=== PATIENT | female | born 1945 | race African-American/Black ===

== ENCOUNTER 2021-09-05 11:34 | Emergency (ER) | payer OTHER ==
[2021-09-05 11:50] VITALS: BP 179/82; PULSE 71; TEMP 98.2; BMI 34.0
[2021-09-05] MEDS ORDERED: IBUPROFEN 600 MG TABLET (FP) PO ONE (13:01)
== END 2021-09-05 13:04 | disposition home or self-care (01) ==
LOC: JERFT 11:34
DX: S82.832A Other fracture of upper and lower end of left fibula, initial encounter for closed fracture (principal); W10.8XXA Fall (on) (from) other stairs and steps, initial encounter
CPT/HCPCS: 73610-TC-LT-FY; 73630-TC-LT; 99283-25

== ENCOUNTER 2022-01-01 17:14 | Emergency (ER) | payer OTHER ==
[2022-01-01 17:43] VITALS: TEMP 98; BMI 34.3
[2022-01-01] MEDS ORDERED: ACETAMINOPHEN 500 MG TABLET (FP) PO ONE (18:21)
[2022-01-01] MEDS ORDERED: ACETAMINOPHEN 325 MG TABLET (FP) ONE (18:39)
[2022-01-01 21:43] VITALS: BP 168/78; PULSE 89
== END 2022-01-01 21:54 | disposition home or self-care (01) ==
LOC: JER 17:14
DX: S82.402A Unspecified fracture of shaft of left fibula, initial encounter for closed fracture (principal); M79.672 Pain in left foot; Y99.9 Unspecified external cause status
CPT/HCPCS: 73610-TC-LT-FY; 73630-TC-LT; 93971-TC; 99284-25

== ENCOUNTER 2022-02-19 05:28 | Inpatient (IN) | payer MEDICARE, OTHER ==
[2022-02-19 05:48] VITALS: BMI 34.0
[2022-02-19] MEDS ORDERED: amLODIPine BESYLATE 5 MG TABLET (FP) PO ONE (06:01)
[2022-02-19] MEDS ORDERED: LIDOCAINE 5% TOPICAL PATCH TP ONE (06:11)
[2022-02-19] MEDS ORDERED: HYDROCHLOROTHIAZIDE 12.5 MG CAPSULE (FP) PO ONE (06:11)
[2022-02-19] MEDS ORDERED: ACETAMINOPHEN 500 MG TABLET (FP) PO ONE (06:11)
[2022-02-19] MEDS ORDERED: amLODIPine BESYLATE 5 MG TABLET (FP) ONE (06:44)
[2022-02-19] MEDS ORDERED: HYDROCHLOROTHIAZIDE 25 MG TABLET (FP) ONE (06:45)
[2022-02-19] MEDS ORDERED: ACETAMINOPHEN 325 MG TABLET (FP) ONE (06:45)
[2022-02-19] MEDS ORDERED: LIDOCAINE 5% TOPICAL PATCH ONE (06:45)
[2022-02-19] MEDS ORDERED: KETOROLAC TROMETHAMINE 15 MG/ML VIAL IM ONE (07:11)
[2022-02-19] MEDS ORDERED: KETOROLAC TROMETHAMINE 15 MG/ML VIAL ONE (08:13)
[2022-02-19] MEDS ORDERED: morphine CARPU-JECT 4 MG/1 ML DISP.SYRIN IVPUSH ONE (09:33)
[2022-02-19] MEDS ORDERED: morphine SULFATE 4 MG/ML VIAL ONE (11:42)
[2022-02-19] MEDS ORDERED: morphine CARPU-JECT 2 MG/1 ML DISP.SYRIN IVPUSH PRN (12:17)
[2022-02-19 14:26] LABS: HEMATOCRIT 35.5 % (32.4-45.2); HEMOGLOBIN 11.5 GM/dL (10.7-15.3); MCH 24.7 pg (25.7-33.7); MCHC 32.3 g/dl (32.0-36.0); MEAN CELL VOLUME 76.6 fl (80-96); MEAN PLT VOLUME 7.2 fl (7.5-11.1); PLATELET COUNT 213 10^3/uL (134-434); RBC 4.64 M/mm3 (3.60-5.2); RDW 15.6 % (11.6-15.6); WHITE BLOOD COUNT 4.1 K/mm3 (4.0-10.0)
[2022-02-19 14:47] LABS: BLOOD UREA NITROGEN 16.9 mg/dL (7-18)
[2022-02-19 14:50] LABS: CREATININE 0.7 mg/dL (0.55-1.3)
[2022-02-19] MEDS ORDERED: LIDOCAINE PATCH REMOVAL MC ONE (19:00)
[2022-02-20] MEDS: BACLOFEN 10 MG TABLET (FP) PO PRN (02:05)
[2022-02-20] MEDS ORDERED: oxyCODONE HCL 5 MG TABLET PO PRN (07:31)
[2022-02-20] MEDS ORDERED: HYDROCHLOROTHIAZIDE 25 MG TABLET (FP) ONE (07:36)
[2022-02-20] MEDS ORDERED: LISINOPRIL 10 MG TABLET ONE (07:37)
[2022-02-20] MEDS: HYDROCHLOROTHIAZIDE 12.5 MG CAPSULE (FP) PO SCH ×2 (07:44→10:58)
[2022-02-20] MEDS: LISINOPRIL 10 MG TABLET PO SCH ×2 (07:45→10:59)
[2022-02-20] MEDS ORDERED: PATIENT'S OWN MEDICATION (NON-FORMULARY) (Lisinopril/Hydrochlorothiazide [Lisinopril-Hctz PO SCH (10:00)
[2022-02-20] MEDS ORDERED: METOCLOPRAMIDE HCL 10 MG TABLET (FP) PO SCH (16:30)
[2022-02-21] MEDS: oxyCODONE HCL 5 MG TABLET PO PRN ×2 (01:57→08:50)
[2022-02-21] MEDS: BACLOFEN 10 MG TABLET (FP) PO PRN (01:57)
[2022-02-21] MEDS: HYDROCHLOROTHIAZIDE 12.5 MG CAPSULE (FP) PO SCH ×2 (08:58→09:11)
[2022-02-21] MEDS: LISINOPRIL 10 MG TABLET PO SCH ×2 (08:58→09:11)
[2022-02-21] MEDS: ENOXAPARIN NA (PORCINE) 40 MG/0.4 ML DISP.SYRIN SQ SCH (08:59)
[2022-02-21] MEDS: GABAPENTIN 100 MG CAPSULE PO SCH ×2 (14:37→23:22)
[2022-02-21] MEDS: DOCUSATE SODIUM 100 MG CAPSULE (FP) PO PRN (18:27)
[2022-02-21] MEDS ORDERED: ATORVASTATIN CA 10 MG TABLET (FP) PO SCH (22:00)
[2022-02-21] MEDS: INSULIN SLIDING SCALE (NOVOLOG) 1 VIAL SQ SCH (23:22)
[2022-02-22] MEDS: oxyCODONE HCL 5 MG TABLET PO PRN (04:30)
[2022-02-22] MEDS: GABAPENTIN 100 MG CAPSULE PO SCH (06:20)
[2022-02-22] MEDS: INSULIN SLIDING SCALE (NOVOLOG) 1 VIAL SQ SCH ×3 (06:21→17:52)
[2022-02-22 08:57] LABS: BASO % 0.4 % (0-2.0); EOS % 1.3 % (0-4.5); HEMATOCRIT 35.7 % (32.4-45.2); HEMOGLOBIN 11.5 GM/dL (10.7-15.3); LYMPH % 32.9 % (8-40); MCH 24.9 pg (25.7-33.7); MCHC 32.2 g/dl (32.0-36.0); MEAN CELL VOLUME 77.2 fl (80-96); MEAN PLT VOLUME 7.7 fl (7.5-11.1); MONO % 13.9 % (3.8-10.2); NEUT % 51.5 % (42.8-82.8); PLATELET COUNT 222 10^3/uL (134-434); RBC 4.62 M/mm3 (3.60-5.2); RDW 15.7 % (11.6-15.6)
[2022-02-22 09:17] LABS: ALBUMIN 3.2 g/dl (3.4-5.0); BLOOD UREA NITROGEN 13.7 mg/dL (7-18)
[2022-02-22 09:21] LABS: CREATININE 0.6 mg/dL (0.55-1.3)
[2022-02-22 09:22] LABS: BILIRUBIN,TOTAL 0.6 mg/dL (0.2-1); TOT PROT 6.8 g/dl (6.4-8.2)
[2022-02-22] MEDS ORDERED: amLODIPine BESYLATE 5 MG TABLET (FP) PO SCH (10:00)
[2022-02-22] MEDS: ENOXAPARIN NA (PORCINE) 40 MG/0.4 ML DISP.SYRIN SQ SCH (10:30)
[2022-02-22] MEDS: DOCUSATE SODIUM 100 MG CAPSULE (FP) PO PRN (10:31)
[2022-02-22] MEDS ORDERED: CELECOXIB 200 MG CAPSULE PO ONE (10:42)
[2022-02-22 13:55] VITALS: BP 159/98; PULSE 102
[2022-02-22] MEDS ORDERED: LISINOPRIL 20 MG TABLET PO SCH (16:00)
[2022-02-22 18:15] VITALS: TEMP 98.4
[2022-02-22] MEDS ORDERED: GABAPENTIN 100 MG CAPSULE PO SCH (22:00)
== END 2022-02-22 19:46 | disposition home or self-care (01) | DRG 551 ==
LOC: JER 05:28 → JERBED 09:33 → OBSVTOIN 02-20 09:04 → J5S 02-20 09:11
PROVIDERS: ADMIT Internal Medicine; ATTEND Internal Medicine
DX: S32.050A Wedge compression fracture of fifth lumbar vertebra, initial encounter for closed fracture (principal); U07.1 COVID-19; E11.9 Type 2 diabetes mellitus without complications; I10 Essential (primary) hypertension; E78.5 Hyperlipidemia, unspecified; M54.16 Radiculopathy, lumbar region; W19.XXXA Unspecified fall, initial encounter; Y93.9 Activity, unspecified; Y92.89 Other specified places as the place of occurrence of the external cause; Y99.9 Unspecified external cause status
CPT/HCPCS: 36415; 72100-TC-FY; 72131-TC; 72192-TC; 73502-TC-RT-FY; 73562-TC-RT-FY; 80048; 80053; 82962; 85025; 85027; 97116-GP; 97162-GP; 99285-25; C9803-CS; G0378; J0475; U0003; U0005

== ENCOUNTER 2023-06-16 09:58 | Emergency (ER) | payer OTHER ==
[2023-06-16 10:08] VITALS: BMI 32.1
[2023-06-16] MEDS ORDERED: ACETAMINOPHEN 325 MG TABLET (FP) PO ONE (11:31)
[2023-06-16] MEDS ORDERED: NAPROXEN 500 MG TABLET PO ONE (12:10)
[2023-06-16] MEDS ORDERED: ACETAMINOPHEN 325 MG TABLET (FP) ONE ×2 (13:00)
[2023-06-16] MEDS ORDERED: NAPROXEN 500 MG TABLET ONE (13:00)
[2023-06-16] MEDS ORDERED: oxyCODONE HCL 5 MG TABLET PO ONE (13:29)
[2023-06-16] MEDS ORDERED: oxyCODONE HCL 5 MG TABLET ONE (13:51)
[2023-06-16 15:14] VITALS: BP 154/73; PULSE 72; RESP 20; TEMP 97.6
== END 2023-06-16 15:15 | disposition home or self-care (01) ==
LOC: JER 09:58
DX: M25.561 Pain in right knee (principal); M25.562 Pain in left knee; G89.29 Other chronic pain; R22.43 Localized swelling, mass and lump, lower limb, bilateral
CPT/HCPCS: 73562-TC-RT-FY; 99283-25

== ENCOUNTER 2023-09-12 13:26 | Inpatient (IN) | payer OTHER ==
[2023-09-12] MEDS ORDERED: ACETAMINOPHEN 1000 MG/100 ML BAG IVPB ONE (15:32)
[2023-09-12] MEDS ORDERED: ACETAMINOPHEN INJECTION 100 ML IVPB ONE (16:00)
[2023-09-12 16:32] LABS: VENOUS BASE EXCESS 3.4 mmol/L (-2-2); VENOUS O2 SATURATION 48.6 % (70-80); VENOUS PCO2 50.8 mmHg (38-52); VENOUS PH 7.383 (7.310-7.410)
[2023-09-12 16:35] LABS: BASO % 0.3 % (0-2.0); EOS % 0.5 % (0-4.5); HEMATOCRIT 41.8 % (32.4-45.2); HEMOGLOBIN 13.3 GM/dL (10.7-15.3); LYMPH % 8.7 % (8-40); MCH 25.1 pg (25.7-33.7); MCHC 31.9 g/dl (32.0-36.0); MEAN CELL VOLUME 78.9 fl (80-96); MEAN PLT VOLUME 7.8 fl (7.5-11.1); MONO % 10.1 % (3.8-10.2); NEUT % 80.4 % (42.8-82.8); PLATELET COUNT 222 10^3/uL (134-434); RDW 15.7 % (11.6-15.6); WHITE BLOOD COUNT 7.7 K/mm3 (4.0-10.0)
[2023-09-12 16:56] LABS: POTASSIUM 4.5 mmol/L (3.5-5.1)
[2023-09-12 16:58] LABS: CALCIUM 9.3 mg/dL (8.5-10.1)
[2023-09-12 16:59] LABS: ALBUMIN 2.9 g/dl (3.4-5.0); BLOOD UREA NITROGEN 15.6 mg/dL (7-18)
[2023-09-12 17:03] LABS: BILIRUBIN,TOTAL 0.7 mg/dL (0.2-1); TOT PROT 7.2 g/dl (6.4-8.2)
[2023-09-12] MEDS ORDERED: METOCLOPRAMIDE HCL INJECTION 10 MG/2 ML VIAL IVPB ONE (17:14)
[2023-09-12] MEDS ORDERED: METOCLOPRAMIDE HCL INJECTION 10 MG/2 ML VIAL ONE (17:48)
[2023-09-12] MEDS ORDERED: FUROSEMIDE 40 MG/4 ML INJECTABLE VIAL IVPUSH ONE (18:38)
[2023-09-12] MEDS ORDERED: FUROSEMIDE 40 MG/4 ML INJECTABLE VIAL ONE ×2 (18:47→21:15)
[2023-09-12] MEDS ORDERED: FUROSEMIDE 40 MG/4 ML INJECTABLE VIAL IVPUSH SCH (20:30)
[2023-09-12 20:37] LABS: EPI CELLS 9 /uL (0-25.1); HYALINE CASTS 6 /uL (0-3.1); URINE APPEARANCE CLOUDY; URINE BACTERIA 18 /uL (0-1359); URINE BILIRUBIN 1+ (NEGATIVE); URINE COLOR DK YELLOW; URINE GLUCOSE (UA) 1+ (NEGATIVE); URINE KETONE TRACE (NEGATIVE); URINE LEUK ESTERASE NEGATIVE (NEGATIVE); URINE NITRITE NEGATIVE (NEGATIVE); URINE PROTEIN 3+ (NEGATIVE); URINE WBC 22 /uL (0-25.8)
[2023-09-12] MEDS ORDERED: GABAPENTIN 100 MG CAPSULE ONE (21:15)
[2023-09-12] MEDS ORDERED: APIXABAN 5 MG TABLET ONE (21:15)
[2023-09-12] MEDS: GABAPENTIN 100 MG CAPSULE PO SCH (21:20)
[2023-09-12] MEDS: APIXABAN 5 MG TABLET PO SCH (21:20)
[2023-09-12 22:00] LABS: URINE RBC 43.7 /uL (0-23.9)
[2023-09-12] MEDS ORDERED: HEPARIN NA (PORCINE) 5,000 UNITS/ML 1ML VIAL SQ SCH (22:00)
[2023-09-12] MEDS: INSULIN ASPART SLIDING SCALE (NOVOLOG) 1 VIAL SQ SCH (22:01)
[2023-09-13 02:40] VITALS: RESP 18
[2023-09-13 03:39] VITALS: BMI 32.2
[2023-09-13] MEDS ORDERED: FUROSEMIDE 40 MG/4 ML INJECTABLE VIAL IVPUSH SCH (06:00)
[2023-09-13] MEDS: FUROSEMIDE 40 MG/4 ML INJECTABLE VIAL IVPUSH SCH ×2 (06:13→13:53)
[2023-09-13] MEDS: INSULIN ASPART SLIDING SCALE (NOVOLOG) 1 VIAL SQ SCH ×4 (06:13→21:07)
[2023-09-13 08:31] LABS: BASO % 0.2 % (0-2.0); EOS % 0.9 % (0-4.5); HEMATOCRIT 40.1 % (32.4-45.2); LYMPH % 17.1 % (8-40); MCHC 32.3 g/dl (32.0-36.0); MEAN CELL VOLUME 77.2 fl (80-96); MEAN PLT VOLUME 7.5 fl (7.5-11.1); MONO % 10.9 % (3.8-10.2); NEUT % 70.9 % (42.8-82.8); PLATELET COUNT 221 10^3/uL (134-434); RDW 15.9 % (11.6-15.6); WHITE BLOOD COUNT 6.2 K/mm3 (4.0-10.0)
[2023-09-13 08:46] LABS: POTASSIUM 3.7 mmol/L (3.5-5.1)
[2023-09-13 08:47] LABS: CALCIUM 9.2 mg/dL (8.5-10.1)
[2023-09-13 08:48] LABS: ALBUMIN 2.9 g/dl (3.4-5.0); BLOOD UREA NITROGEN 14.8 mg/dL (7-18); MAGNESIUM 1.9 mg/dL (1.8-2.4)
[2023-09-13 08:51] LABS: CREATININE 0.8 mg/dL (0.55-1.3)
[2023-09-13 08:53] LABS: BILIRUBIN,TOTAL 0.8 mg/dL (0.2-1); TOT PROT 7.1 g/dl (6.4-8.2)
[2023-09-13] MEDS: GABAPENTIN 100 MG CAPSULE PO SCH ×2 (10:30→21:11)
[2023-09-13] MEDS: APIXABAN 5 MG TABLET PO SCH ×2 (10:30→21:10)
[2023-09-13] MEDS ORDERED: LISINOPRIL 5 MG TABLET PO SCH (16:30)
[2023-09-13] MEDS ORDERED: ATORVASTATIN CA 10 MG TABLET (FP) PO SCH (22:00)
[2023-09-14] MEDS ORDERED: LISINOPRIL 5 MG TABLET PO ONE (05:53)
[2023-09-14] MEDS: FUROSEMIDE 40 MG/4 ML INJECTABLE VIAL IVPUSH SCH ×2 (06:26→13:59)
[2023-09-14] MEDS: INSULIN ASPART SLIDING SCALE (NOVOLOG) 1 VIAL SQ SCH ×2 (06:32→12:08)
[2023-09-14 07:08] LABS: BASO % 0.2 % (0-2.0); EOS % 1.1 % (0-4.5); HEMATOCRIT 38.9 % (32.4-45.2); HEMOGLOBIN 12.4 GM/dL (10.7-15.3); LYMPH % 19.7 % (8-40); MEAN CELL VOLUME 78.3 fl (80-96); MEAN PLT VOLUME 7.7 fl (7.5-11.1); MONO % 10.1 % (3.8-10.2); NEUT % 68.9 % (42.8-82.8); PLATELET COUNT 210 10^3/uL (134-434); RBC 4.96 M/mm3 (3.60-5.2); RDW 15.4 % (11.6-15.6); WHITE BLOOD COUNT 6.3 K/mm3 (4.0-10.0)
[2023-09-14 07:32] LABS: POTASSIUM 3.5 mmol/L (3.5-5.1)
[2023-09-14 07:39] LABS: PHOSPHOROUS 3.1 mg/dL (2.5-4.9)
[2023-09-14 07:40] LABS: ALBUMIN 2.6 g/dl (3.4-5.0); BLOOD UREA NITROGEN 15.7 mg/dL (7-18)
[2023-09-14 07:41] LABS: BILIRUBIN,TOTAL 0.7 mg/dL (0.2-1); TOT PROT 6.5 g/dl (6.4-8.2)
[2023-09-14 07:42] LABS: CREATININE 0.7 mg/dL (0.55-1.3)
[2023-09-14 07:43] LABS: MAGNESIUM 1.9 mg/dL (1.8-2.4)
[2023-09-14] MEDS ORDERED: LISINOPRIL 20 MG TABLET PO SCH (07:48)
[2023-09-14] MEDS ORDERED: LISINOPRIL 5 MG TABLET PO SCH (10:00)
[2023-09-14] MEDS: APIXABAN 5 MG TABLET PO SCH (10:40)
[2023-09-14] MEDS: GABAPENTIN 100 MG CAPSULE PO SCH (10:40)
[2023-09-14] MEDS ORDERED: CYCLOBENZAPRINE HCL 5 MG TABLET PO ONE ×2 (11:45→14:15)
[2023-09-14 14:30] VITALS: BP 142/91; PULSE 94; TEMP 97.6
[2023-09-15] MEDS ORDERED: CYCLOBENZAPRINE HCL 5 MG TABLET PO ONE (11:45)
== END 2023-09-14 16:20 | disposition home or self-care (01) | DRG 291 ==
LOC: JER 13:26 → JERBED 18:18 → J4W 09-13 01:57
PROVIDERS: ADMIT Internal Medicine; ATTEND Internal Medicine
DX: I13.0 Hypertensive heart and chronic kidney disease with heart failure and stage 1 through stage 4 chronic kidney disease, or unspecified chronic kidney disease (principal); I50.33 Acute on chronic diastolic (congestive) heart failure; U07.1 COVID-19; N17.9 Acute kidney failure, unspecified; E11.22 Type 2 diabetes mellitus with diabetic chronic kidney disease; N18.9 Chronic kidney disease, unspecified; K76.1 Chronic passive congestion of liver; E78.5 Hyperlipidemia, unspecified; I48.91 Unspecified atrial fibrillation; R74.01 Elevation of levels of liver transaminase levels
CPT/HCPCS: 0241U-QW; 36415; 71045-TC-FY; 76705-TC; 80053; 80061; 81003; 82803; 82962; 83036; 83735; 83880; 84100; 84443; 84484; 85025; 93005; 93010; 93306-TC; 99285-25

== ENCOUNTER 2024-01-08 13:21 | Emergency (ER) | payer OTHER ==
[2024-01-08 13:40] VITALS: PULSE 100; TEMP 98.7; BMI 24.3
[2024-01-08 14:48] LABS: BASO % 0.8 % (0-2.0); EOS % 1.9 % (0-4.5); HEMATOCRIT 37.4 % (32.4-45.2); HEMOGLOBIN 11.9 GM/dL (10.7-15.3); LYMPH % 9.9 % (8-40); MCH 24.9 pg (25.7-33.7); MCHC 31.7 g/dl (32.0-36.0); MEAN CELL VOLUME 78.6 fl (80-96); MEAN PLT VOLUME 7.4 fl (7.5-11.1); MONO % 12.7 % (3.8-10.2); NEUT % 74.7 % (42.8-82.8); PLATELET COUNT 202 10^3/uL (134-434); RBC 4.75 M/mm3 (3.60-5.2); RDW 14.8 % (11.6-15.6); WHITE BLOOD COUNT 8.1 K/mm3 (4.0-10.0)
[2024-01-08 15:10] LABS: ALBUMIN 2.7 g/dl (3.4-5.0)
[2024-01-08 15:11] LABS: BLOOD UREA NITROGEN 11.5 mg/dL (7-18); CALCIUM 8.8 mg/dL (8.5-10.1)
[2024-01-08 15:16] LABS: TOT PROT 7.1 g/dl (6.4-8.2)
[2024-01-08] MEDS: methylPREDNISolone NA SUCC 125 MG/2 ML VIAL IVPB ONE (15:49)
[2024-01-08] MEDS ORDERED: ACETAMINOPHEN INJECTION 100 ML IVPB ONE (16:02)
[2024-01-08] MEDS ORDERED: guaiFENesin/D-METHORPHAN HB 10 ML UNIT-DOSE CUPS ONE (16:02)
[2024-01-08] MEDS: ACETAMINOPHEN 1000 MG/100 ML BAG IVPB ONE (16:09)
[2024-01-08] MEDS: guaiFENesin 200 MG/10 ML 10 ML UNIT-DOSE CUPS PO ONE (16:10)
[2024-01-08] MEDS ORDERED: DOXYCYCLINE HYCLATE 100 MG CAPSULE PO ONE (16:42)
[2024-01-08] MEDS: DOXYCYCLINE HYCLATE 100 MG CAPSULE PO ONE (16:47)
[2024-01-08] MEDS: CEFPODOXIME PROXETIL 200 MG TABLET [NF] PO ONE (18:32)
[2024-01-08 18:51] VITALS: BP 130/60; RESP 18
== END 2024-01-08 18:51 | disposition home or self-care (01) ==
LOC: JER 13:21
PROC: 3E033NZ Introduction of Analgesics, Hypnotics, Sedatives into Peripheral Vein, Percutaneous Approach (ICD-10-PCS; principal; 2024-01-08)
DX: R05.9 Cough, unspecified (principal); R06.02 Shortness of breath; J18.9 Pneumonia, unspecified organism; Z20.822 Contact with and (suspected) exposure to COVID-19
CPT/HCPCS: 0241U-QW; 36415; 71046-TC-FY; 71250-TC; 80053; 83735; 84484; 85025; 93005; 93010; 99285-25; J0131

== ENCOUNTER 2024-01-20 09:41 | Inpatient (IN) | payer OTHER ==
[2024-01-20 10:35] LABS: VENOUS BASE EXCESS 1.1 mmol/L (-2-2); VENOUS O2 SATURATION 22.1 % (70-80); VENOUS PCO2 40.9 mmHg (38-52); VENOUS PH 7.417 (7.310-7.410)
[2024-01-20 10:39] LABS: BASO % 0.7 % (0-2.0); EOS % 2.1 % (0-4.5); HEMATOCRIT 37.9 % (32.4-45.2); HEMOGLOBIN 12.1 GM/dL (10.7-15.3); LYMPH % 13.1 % (8-40); MCH 25.1 pg (25.7-33.7); MCHC 31.9 g/dl (32.0-36.0); MEAN CELL VOLUME 78.7 fl (80-96); MEAN PLT VOLUME 7.3 fl (7.5-11.1); MONO % 9.8 % (3.8-10.2); NEUT % 74.3 % (42.8-82.8); PLATELET COUNT 230 10^3/uL (134-434); RBC 4.82 M/mm3 (3.60-5.2); RDW 14.7 % (11.6-15.6); WHITE BLOOD COUNT 6.6 K/mm3 (4.0-10.0)
[2024-01-20 10:42] LABS: INR 1.29 (0.83-1.09); PROTHROMBIN TIME (PATIENT) 14.7 SEC (9.7-13.0)
[2024-01-20 10:45] LABS: ACTIVATED PTT 33.6 SECONDS (25.2-36.5)
[2024-01-20 10:57] LABS: POTASSIUM 5.3 mmol/L (3.5-5.1)
[2024-01-20 10:59] LABS: CALCIUM 9.3 mg/dL (8.5-10.1)
[2024-01-20 11:00] LABS: ALBUMIN 2.7 g/dl (3.4-5.0); BLOOD UREA NITROGEN 13.3 mg/dL (7-18)
[2024-01-20 11:03] LABS: CREATININE 0.9 mg/dL (0.55-1.3)
[2024-01-20 11:04] LABS: BILIRUBIN,TOTAL 0.6 mg/dL (0.2-1); TOT PROT 7.4 g/dl (6.4-8.2)
[2024-01-20 11:07] LABS: N-TERMINAL BNP 3255.2 pg/ml (5-450)
[2024-01-20] MEDS ORDERED: FUROSEMIDE 40 MG/4 ML INJECTABLE VIAL ONE ×2 (11:20→16:42)
[2024-01-20] MEDS: FUROSEMIDE 40 MG/4 ML INJECTABLE VIAL IVPUSH ONE ×2 (11:37→16:30)
[2024-01-20] MEDS: HYDROCHLOROTHIAZIDE 25 MG TABLET (FP) PO ONE (13:09)
[2024-01-20] MEDS: VALSARTAN 160 MG TABLET PO ONE (13:09)
[2024-01-20] MEDS ORDERED: APIXABAN 5 MG TABLET ONE (22:06)
[2024-01-20] MEDS: APIXABAN 5 MG TABLET PO SCH (22:20)
[2024-01-21] MEDS ORDERED: FUROSEMIDE 40 MG/4 ML INJECTABLE VIAL ONE (05:59)
[2024-01-21] MEDS: FUROSEMIDE 40 MG/4 ML INJECTABLE VIAL IVPUSH SCH (06:04)
[2024-01-21 06:15] LABS: BASO % 0.8 % (0-2.0); EOS % 2.3 % (0-4.5); HEMATOCRIT 36.2 % (32.4-45.2); HEMOGLOBIN 11.7 GM/dL (10.7-15.3); MCHC 32.2 g/dl (32.0-36.0); MEAN CELL VOLUME 77.7 fl (80-96); MEAN PLT VOLUME 7.3 fl (7.5-11.1); MONO % 11.5 % (3.8-10.2); NEUT % 69.4 % (42.8-82.8); PLATELET COUNT 202 10^3/uL (134-434); RBC 4.66 M/mm3 (3.60-5.2); RDW 14.7 % (11.6-15.6); WHITE BLOOD COUNT 6.1 K/mm3 (4.0-10.0)
[2024-01-21 06:31] LABS: POTASSIUM 3.5 mmol/L (3.5-5.1)
[2024-01-21 06:32] LABS: CALCIUM 9.1 mg/dL (8.5-10.1)
[2024-01-21 06:34] LABS: BLOOD UREA NITROGEN 16.7 mg/dL (7-18)
[2024-01-21 06:37] LABS: CREATININE 0.7 mg/dL (0.55-1.3)
[2024-01-21] MEDS: LISINOPRIL 20 MG TABLET PO SCH (10:37)
[2024-01-21] MEDS: INSULIN ASPART SLIDING SCALE (NOVOLOG) 1 VIAL SQ SCH (16:41)
[2024-01-21] MEDS: ATORVASTATIN CA 10 MG TABLET (FP) PO SCH (21:37)
[2024-01-22 07:17] LABS: BASO % 0.6 % (0-2.0); EOS % 2.6 % (0-4.5); HEMATOCRIT 34.5 % (32.4-45.2); HEMOGLOBIN 11.1 GM/dL (10.7-15.3); LYMPH % 20.7 % (8-40); MCH 25.2 pg (25.7-33.7); MCHC 32.3 g/dl (32.0-36.0); MEAN PLT VOLUME 7.5 fl (7.5-11.1); MONO % 10.9 % (3.8-10.2); NEUT % 65.2 % (42.8-82.8); PLATELET COUNT 204 10^3/uL (134-434); RBC 4.42 M/mm3 (3.60-5.2); RDW 14.6 % (11.6-15.6)
[2024-01-22 07:35] LABS: POTASSIUM 3.3 mmol/L (3.5-5.1)
[2024-01-22 07:37] LABS: BLOOD UREA NITROGEN 17.8 mg/dL (7-18); CALCIUM 8.8 mg/dL (8.5-10.1)
[2024-01-22 07:40] LABS: CREATININE 0.7 mg/dL (0.55-1.3)
[2024-01-22] MEDS ORDERED: POTASSIUM CHLORIDE ORAL LIQUID 20 MEQ/15 ML PO SCH (10:00)
[2024-01-22] MEDS: POTASSIUM CHLORIDE ORAL LIQUID 20 MEQ/15 ML PO SCH (10:47)
[2024-01-22] MEDS ORDERED: COSYNTROPIN 0.25 MG VIAL IVPUSH ONE (11:15)
[2024-01-23 07:22] LABS: HEMATOCRIT 35.8 % (32.4-45.2); HEMOGLOBIN 11.5 GM/dL (10.7-15.3); MEAN CELL VOLUME 77.9 fl (80-96); MEAN PLT VOLUME 7.5 fl (7.5-11.1); PLATELET COUNT 199 10^3/uL (134-434); RDW 14.7 % (11.6-15.6); WHITE BLOOD COUNT 5.3 K/mm3 (4.0-10.0)
[2024-01-23 07:42] LABS: POTASSIUM 3.9 mmol/L (3.5-5.1)
[2024-01-23 07:43] LABS: BLOOD UREA NITROGEN 22.5 mg/dL (7-18)
[2024-01-23 07:47] LABS: CREATININE 0.7 mg/dL (0.55-1.3)
[2024-01-23 20:50] VITALS: BMI 30.7
[2024-01-24 12:47] VITALS: RESP 20
[2024-01-24 14:51] VITALS: BP 116/81; PULSE 82; TEMP 98.4
== END 2024-01-24 14:59 | disposition home or self-care (01) | DRG 291 ==
LOC: JER 09:41 → JERBED 12:26 → J4W 01-21 09:34
PROVIDERS: ADMIT Internal Medicine; ATTEND Internal Medicine
DX: I13.0 Hypertensive heart and chronic kidney disease with heart failure and stage 1 through stage 4 chronic kidney disease, or unspecified chronic kidney disease (principal); I50.33 Acute on chronic diastolic (congestive) heart failure; J96.01 Acute respiratory failure with hypoxia; N17.9 Acute kidney failure, unspecified; I24.89 Other forms of acute ischemic heart disease; I48.91 Unspecified atrial fibrillation; D86.9 Sarcoidosis, unspecified; I44.4 Left anterior fascicular block; E11.22 Type 2 diabetes mellitus with diabetic chronic kidney disease; N18.9 Chronic kidney disease, unspecified
CPT/HCPCS: 0241U-QW; 36415; 71045-TC-FY; 80048; 80053; 82803; 82962; 83880; 84484; 85025; 85027; 85610; 85730; 86850; 86900; 86901; 93005; 93010; 93970-TC; 97116-GP; 97162-GP; 99285-25

== ENCOUNTER 2024-02-15 20:10 | Emergency (ER) | payer OTHER ==
[2024-02-15 20:27] VITALS: BP 145/73; RESP 20; TEMP 98.6; BMI 29.1
[2024-02-15] MEDS ORDERED: ACETAMINOPHEN 325 MG TABLET (FP) ONE (21:19)
[2024-02-15] MEDS: ACETAMINOPHEN 325 MG TABLET (FP) PO ONE (21:28)
[2024-02-15 22:46] VITALS: PULSE 89
[2024-02-15] MEDS ORDERED: FLUCONAZOLE 150 MG TABLET PO ONE (22:50)
[2024-02-15] MEDS: FLUCONAZOLE 50 MG TABLET PO ONE (23:05)
== END 2024-02-15 23:14 | disposition home or self-care (01) ==
LOC: JER 20:10
DX: S93.402A Sprain of unspecified ligament of left ankle, initial encounter (principal); B35.9 Dermatophytosis, unspecified; W22.8XXA Striking against or struck by other objects, initial encounter; Y93.02 Activity, running
CPT/HCPCS: 73610-TC-LT-FY; 73630-TC-LT; 99283-25

== ENCOUNTER 2024-03-24 18:59 | Inpatient (IN) | payer OTHER ==
[2024-03-24 19:11] VITALS: BMI 30.2
[2024-03-24] MEDS ORDERED: ACETAMINOPHEN INJECTION 100 ML IVPB ONE (19:37)
[2024-03-24] MEDS ORDERED: ONDANSETRON 4 MG/2 ML VIAL ONE (19:37)
[2024-03-24 19:40] LABS: VENOUS BASE EXCESS 2.4 mmol/L (-2-2); VENOUS O2 SATURATION 32.8 % (70-80); VENOUS PCO2 43.8 mmHg (38-52); VENOUS PH 7.414 (7.310-7.410)
[2024-03-24] MEDS: ACETAMINOPHEN 1000 MG/100 ML BAG IVPB ONE (19:42)
[2024-03-24] MEDS: ONDANSETRON 4 MG/2 ML VIAL IVPUSH ONE (19:43)
[2024-03-24 19:45] LABS: HEMATOCRIT 37.5 % (32.4-45.2); HEMOGLOBIN 12.1 GM/dL (10.7-15.3); LYMPH % 11.5 % (8-40); MCH 25.2 pg (25.7-33.7); MCHC 32.3 g/dl (32.0-36.0); MEAN CELL VOLUME 78.1 fl (80-96); MEAN PLT VOLUME 7.4 fl (7.5-11.1); MONO % 10.9 % (3.8-10.2); NEUT % 75.6 % (42.8-82.8); PLATELET COUNT 190 10^3/uL (134-434); WHITE BLOOD COUNT 7.1 K/mm3 (4.0-10.0)
[2024-03-24] MEDS ORDERED: VALSARTAN 80 MG TABLET ONE (19:45)
[2024-03-24] MEDS: VALSARTAN 160 MG TABLET PO ONE (19:54)
[2024-03-24 19:58] LABS: POTASSIUM 3.9 mmol/L (3.5-5.1)
[2024-03-24 20:00] LABS: CALCIUM 9.6 mg/dL (8.5-10.1)
[2024-03-24] MEDS: BENZONATATE 200 MG CAPSULE PO ONE (20:02)
[2024-03-24 20:03] LABS: INR 1.4 (0.83-1.09); PROTHROMBIN TIME (PATIENT) 15.9 SEC (9.7-13.0)
[2024-03-24 20:04] LABS: CREATININE 0.9 mg/dL (0.55-1.3)
[2024-03-24] MEDS ORDERED: FUROSEMIDE 40 MG/4 ML INJECTABLE VIAL ONE (20:05)
[2024-03-24 20:06] LABS: ACTIVATED PTT 31.2 SECONDS (25.2-36.5); BILIRUBIN,TOTAL 0.9 mg/dL (0.2-1); TOT PROT 7.8 g/dl (6.4-8.2)
[2024-03-24] MEDS: FUROSEMIDE 40 MG/4 ML INJECTABLE VIAL IVPUSH ONE ×2 (20:09→23:53)
[2024-03-24 20:26] LABS: MAGNESIUM 1.7 mg/dL (1.8-2.4)
[2024-03-24] MEDS ORDERED: MAGNESIUM 1GM/D5W - 1 GM/100 ML IVPB IVPB ONE (20:33)
[2024-03-24] MEDS: MAGNESIUM 1GM/D5W - 1 GM/100 ML IVPB IVPB ONE (20:33)
[2024-03-24 20:34] LABS: N-TERMINAL BNP 3355.8 pg/ml (5-450)
[2024-03-24] MEDS ORDERED: AZITHROMYCIN IVPB 500 MG in DEXTROSE 5%-WATER - 250 ML IVPB ONE (20:35)
[2024-03-24 20:48] LABS: EPI CELLS 2 /uL (0-25.1); HYALINE CASTS 0 /uL (0-3.1); PH,URINE 6.5 (5.0-8.0); URINE APPEARANCE CLEAR; URINE BACTERIA 14 /uL (0-1359); URINE BILIRUBIN NEGATIVE (NEGATIVE); URINE COLOR YELLOW; URINE GLUCOSE (UA) NEGATIVE (NEGATIVE); URINE KETONE NEGATIVE (NEGATIVE); URINE LEUK ESTERASE NEGATIVE (NEGATIVE); URINE NITRITE NEGATIVE (NEGATIVE); URINE PROTEIN 2+ (NEGATIVE); URINE RBC 39 /uL (0-23.9); URINE WBC 3 /uL (0-25.8)
[2024-03-24] MEDS ORDERED: CEFTRIAXONE 1 GM/50 ML BAG ONE (21:00)
[2024-03-24] MEDS ORDERED: DOXYCYCLINE HYCLATE 100 MG VIAL ONE (21:04)
[2024-03-24] MEDS: DOXYCYCLINE INJECTION 100 MG in DEXTROSE 5%-WATER 100 ML IVPB ONE (21:19)
[2024-03-24] MEDS: INSULIN ASPART SLIDING SCALE (NOVOLOG) 1 VIAL SQ SCH (23:52)
[2024-03-25] MEDS ORDERED: DEXTROSE 50%-WATER 25 GM/50 ML DISP.SYRIN ONE (03:20)
[2024-03-25 08:27] LABS: BASO % 0.3 % (0-2.0); EOS % 1.8 % (0-4.5); HEMATOCRIT 33.8 % (32.4-45.2); HEMOGLOBIN 11.4 GM/dL (10.7-15.3); LYMPH % 15.6 % (8-40); MCH 25.8 pg (25.7-33.7); MCHC 33.8 g/dl (32.0-36.0); MEAN CELL VOLUME 76.5 fl (80-96); MEAN PLT VOLUME 7.6 fl (7.5-11.1); MONO % 11.6 % (3.8-10.2); NEUT % 70.7 % (42.8-82.8); PLATELET COUNT 171 10^3/uL (134-434); RBC 4.42 M/mm3 (3.60-5.2); WHITE BLOOD COUNT 5.8 K/mm3 (4.0-10.0)
[2024-03-25 08:44] LABS: POTASSIUM 3.5 mmol/L (3.5-5.1)
[2024-03-25 08:50] LABS: BLOOD UREA NITROGEN 12.6 mg/dL (7-18); CALCIUM 8.6 mg/dL (8.5-10.1); MAGNESIUM 1.6 mg/dL (1.8-2.4)
[2024-03-25 08:51] LABS: ALBUMIN 2.7 g/dl (3.4-5.0)
[2024-03-25 08:53] LABS: PHOSPHOROUS 3.2 mg/dL (2.5-4.9)
[2024-03-25 08:54] LABS: CREATININE 0.7 mg/dL (0.55-1.3)
[2024-03-25 08:55] LABS: BILIRUBIN,TOTAL 1.1 mg/dL (0.2-1); TOT PROT 7.1 g/dl (6.4-8.2)
[2024-03-25] MEDS: AZITHROMYCIN IVPB 250 MG in DEXTROSE 5%-WATER - 250 ML IVPB SCH (09:34)
[2024-03-25] MEDS: FUROSEMIDE 40 MG/4 ML INJECTABLE VIAL IVPUSH SCH (09:35)
[2024-03-25] MEDS: APIXABAN 5 MG TABLET PO SCH (09:35)
[2024-03-25] MEDS: VALSARTAN 160 MG TABLET PO SCH (09:36)
[2024-03-25] MEDS: guaiFENesin 600 MG TABLET.ER (FP) PO PRN (13:03)
[2024-03-25] MEDS: MAGNESIUM 2GM/50ML STERILE WATER IVPB IVPB ONE (15:05)
[2024-03-25] MEDS ORDERED: INSULIN ASPART SLIDING SCALE (NOVOLOG) 1 VIAL SQ ONE (17:19)
[2024-03-25] MEDS ORDERED: AZITHROMYCIN 250 MG TABLET PO SCH (20:00)
[2024-03-25] MEDS: CEFTRIAXONE 1 GM in DEXTROSE 5%-WATER - 50 ML IVPB SCH (21:30)
[2024-03-26 07:10] LABS: HEMOGLOBIN 11.1 GM/dL (10.7-15.3); MCH 24.9 pg (25.7-33.7); MCHC 31.8 g/dl (32.0-36.0); MEAN CELL VOLUME 78.3 fl (80-96); MEAN PLT VOLUME 7.4 fl (7.5-11.1); PLATELET COUNT 163 10^3/uL (134-434); RBC 4.46 M/mm3 (3.60-5.2); RDW 16.6 % (11.6-15.6); WHITE BLOOD COUNT 6.3 K/mm3 (4.0-10.0)
[2024-03-26 07:33] LABS: POTASSIUM 3.9 mmol/L (3.5-5.1)
[2024-03-26 07:34] LABS: CALCIUM 9.1 mg/dL (8.5-10.1); MAGNESIUM 2.1 mg/dL (1.8-2.4)
[2024-03-26 07:35] LABS: BLOOD UREA NITROGEN 16.5 mg/dL (7-18)
[2024-03-26 07:38] LABS: CREATININE 0.7 mg/dL (0.55-1.3); PHOSPHOROUS 2.9 mg/dL (2.5-4.9)
[2024-03-26] MEDS ORDERED: CODEINE SO4 30 MG TABLET PO PRN (09:11)
[2024-03-26] MEDS: FUROSEMIDE 40 MG TABLET (FP) PO SCH (10:38)
[2024-03-26] MEDS: CODEINE SO4 30 MG TABLET PO PRN (11:02)
[2024-03-26] MEDS: FUROSEMIDE 40 MG/4 ML INJECTABLE VIAL IVPUSH ONE (13:03)
[2024-03-27 08:18] LABS: HEMATOCRIT 34.2 % (32.4-45.2); HEMOGLOBIN 11.1 GM/dL (10.7-15.3); MCH 25.3 pg (25.7-33.7); MCHC 32.6 g/dl (32.0-36.0); MEAN CELL VOLUME 77.6 fl (80-96); MEAN PLT VOLUME 7.6 fl (7.5-11.1); PLATELET COUNT 175 10^3/uL (134-434); RBC 4.41 M/mm3 (3.60-5.2); RDW 16.1 % (11.6-15.6); WHITE BLOOD COUNT 5.6 K/mm3 (4.0-10.0)
[2024-03-27 08:40] LABS: CALCIUM 8.9 mg/dL (8.5-10.1)
[2024-03-27 08:41] LABS: BLOOD UREA NITROGEN 15.3 mg/dL (7-18)
[2024-03-27 08:44] LABS: CREATININE 0.6 mg/dL (0.55-1.3)
[2024-03-27] MEDS: FUROSEMIDE 40 MG/4 ML INJECTABLE VIAL IVPUSH ONE (12:40)
[2024-03-28 06:47] LABS: HEMOGLOBIN 11.1 GM/dL (10.7-15.3); MCH 25.3 pg (25.7-33.7); MCHC 32.6 g/dl (32.0-36.0); MEAN CELL VOLUME 77.6 fl (80-96); MEAN PLT VOLUME 7.2 fl (7.5-11.1); PLATELET COUNT 182 10^3/uL (134-434); RBC 4.38 M/mm3 (3.60-5.2); RDW 16.5 % (11.6-15.6); WHITE BLOOD COUNT 5.1 K/mm3 (4.0-10.0)
[2024-03-28 07:14] LABS: POTASSIUM 4.1 mmol/L (3.5-5.1)
[2024-03-28 07:18] LABS: BLOOD UREA NITROGEN 16.9 mg/dL (7-18); MAGNESIUM 1.8 mg/dL (1.8-2.4)
[2024-03-28 07:21] LABS: CREATININE 0.7 mg/dL (0.55-1.3); PHOSPHOROUS 2.7 mg/dL (2.5-4.9)
[2024-03-29 07:55] LABS: POTASSIUM 3.7 mmol/L (3.5-5.1)
[2024-03-29 07:59] LABS: CALCIUM 8.9 mg/dL (8.5-10.1); MAGNESIUM 1.7 mg/dL (1.8-2.4)
[2024-03-29 08:02] LABS: CREATININE 0.5 mg/dL (0.55-1.3)
[2024-03-29 08:03] LABS: PHOSPHOROUS 2.3 mg/dL (2.5-4.9)
[2024-03-29 08:16] LABS: HEMATOCRIT 34.2 % (32.4-45.2); HEMOGLOBIN 11.2 GM/dL (10.7-15.3); MCHC 32.6 g/dl (32.0-36.0); MEAN CELL VOLUME 76.8 fl (80-96); MEAN PLT VOLUME 7.4 fl (7.5-11.1); PLATELET COUNT 196 10^3/uL (134-434); RBC 4.46 M/mm3 (3.60-5.2); RDW 16.6 % (11.6-15.6); WHITE BLOOD COUNT 4.5 K/mm3 (4.0-10.0)
[2024-03-29] MEDS: MAGNESIUM 1GM/D5W - 1 GM/100 ML IVPB IVPB ONE (10:01)
[2024-03-29] MEDS: AZITHROMYCIN 250 MG TABLET PO SCH (10:01)
[2024-03-29] MEDS: SODIUM PHOSPHATE - 15 MM in DEXTROSE 5%-WATER - 250 ML IVPB ONE (10:14)
[2024-03-30 07:27] LABS: POTASSIUM 4.3 mmol/L (3.5-5.1)
[2024-03-30 07:34] LABS: ALBUMIN 2.5 g/dl (3.4-5.0); BLOOD UREA NITROGEN 11.7 mg/dL (7-18)
[2024-03-30 07:35] LABS: CALCIUM 9.1 mg/dL (8.5-10.1); MAGNESIUM 1.8 mg/dL (1.8-2.4)
[2024-03-30 07:37] LABS: BASO % 0.4 % (0-2.0); EOS % 2.7 % (0-4.5); HEMATOCRIT 35.7 % (32.4-45.2); HEMOGLOBIN 11.5 GM/dL (10.7-15.3); MCH 25.3 pg (25.7-33.7); MCHC 32.2 g/dl (32.0-36.0); MEAN CELL VOLUME 78.7 fl (80-96); MEAN PLT VOLUME 7.3 fl (7.5-11.1); NEUT % 66.9 % (42.8-82.8); PLATELET COUNT 201 10^3/uL (134-434); RBC 4.53 M/mm3 (3.60-5.2); RDW 16.3 % (11.6-15.6); WHITE BLOOD COUNT 5.1 K/mm3 (4.0-10.0)
[2024-03-30 07:38] LABS: CREATININE 0.6 mg/dL (0.55-1.3); PHOSPHOROUS 2.9 mg/dL (2.5-4.9)
[2024-03-30 07:39] LABS: BILIRUBIN,TOTAL 0.6 mg/dL (0.2-1)
[2024-03-30] MEDS: FLUTICASONE PROP 0.05% 16 GM NASAL SPRAY NS SCH (12:25)
[2024-03-30 15:34] VITALS: BP 129/95; PULSE 71; RESP 18; TEMP 98.6
== END 2024-03-30 15:26 | disposition home or self-care (01) | DRG 291 ==
LOC: JER 18:59 → JERBED 20:38 → J4W 22:56 → OBSVTOIN 03-25 09:38
PROVIDERS: ADMIT Internal Medicine; ATTEND Internal Medicine
DX: I11.0 Hypertensive heart disease with heart failure (principal); I50.33 Acute on chronic diastolic (congestive) heart failure; J18.9 Pneumonia, unspecified organism; I24.89 Other forms of acute ischemic heart disease; I16.0 Hypertensive urgency; I48.91 Unspecified atrial fibrillation; R63.4 Abnormal weight loss; E78.5 Hyperlipidemia, unspecified; E11.9 Type 2 diabetes mellitus without complications
CPT/HCPCS: 0241U-QW; 36415; 71045-TC-FY; 80048; 80053; 81003; 82803; 82962; 83605; 83735; 83880; 84100; 84484; 85025; 85027; 85610; 85730; 86850; 86900; 86901; 87040; 87086; 87186; 87633; 87899; 93005; 93010; 93971-TC; 94761; 97116-GP; 99285-25; G0378; J0131

== ENCOUNTER 2024-04-03 08:36 | Inpatient (IN) | payer OTHER ==
[2024-04-03] MEDS: SODIUM CHLORIDE 0.9% 500 ML INFUS.BAG IV ONE (09:58)
[2024-04-03] MEDS: METOPROLOL TARTRATE 5 MG/5 ML VIAL IVPUSH ONE (09:58)
[2024-04-03 10:07] LABS: VENOUS BASE EXCESS 0.9 mmol/L (-2-2); VENOUS O2 SATURATION 51.1 % (70-80); VENOUS PH 7.442 (7.310-7.410)
[2024-04-03 10:15] LABS: BASO % 0.6 % (0-2.0); EOS % 0.9 % (0-4.5); HEMATOCRIT 38.5 % (32.4-45.2); HEMOGLOBIN 12.4 GM/dL (10.7-15.3); LYMPH % 7.9 % (8-40); MCH 25.3 pg (25.7-33.7); MCHC 32.3 g/dl (32.0-36.0); MEAN CELL VOLUME 78.4 fl (80-96); MEAN PLT VOLUME 7.3 fl (7.5-11.1); MONO % 8.2 % (3.8-10.2); NEUT % 82.4 % (42.8-82.8); PLATELET COUNT 241 10^3/uL (134-434); RBC 4.92 M/mm3 (3.60-5.2); RDW 16.5 % (11.6-15.6); WHITE BLOOD COUNT 7.5 K/mm3 (4.0-10.0)
[2024-04-03 10:16] LABS: INR 1.71 (0.83-1.09); PROTHROMBIN TIME (PATIENT) 19.4 SEC (9.7-13.0)
[2024-04-03 10:17] LABS: POTASSIUM 4.7 mmol/L (3.5-5.1)
[2024-04-03 10:20] LABS: CALCIUM 9.5 mg/dL (8.5-10.1)
[2024-04-03 10:21] LABS: ALBUMIN 2.8 g/dl (3.4-5.0); BLOOD UREA NITROGEN 12.4 mg/dL (7-18)
[2024-04-03 10:23] LABS: CREATININE 0.8 mg/dL (0.55-1.3)
[2024-04-03 10:34] LABS: BILIRUBIN,TOTAL 0.9 mg/dL (0.2-1)
[2024-04-03] MEDS ORDERED: PIPERACILLIN/TAZOB 4.5 GM 4.5 GM/100 ML BAG IVPB ONE (11:26)
[2024-04-03] MEDS ORDERED: VANCOMYCIN 1 GRAM (PRE-DOCKED) 1,000 MG/250 ML BAG IVPB ONE (11:27)
[2024-04-03] MEDS: PIPERACILLIN/TAZOB 4.5 GM 4.5 GM in DEXTROSE 5%-WATER 100 ML IVPB ONE (11:37)
[2024-04-03] MEDS ORDERED: FUROSEMIDE 40 MG/4 ML INJECTABLE VIAL ONE (12:19)
[2024-04-03 12:29] LABS: N-TERMINAL BNP 4360.8 pg/ml (5-450)
[2024-04-03] MEDS: FUROSEMIDE 40 MG/4 ML INJECTABLE VIAL IVPUSH ONE (12:30)
[2024-04-03] MEDS: VANCOMYCIN 1,000 MG in DEXTROSE 5%-WATER - 250 ML IVPB ONE (12:51)
[2024-04-03] MEDS: FUROSEMIDE 40 MG/4 ML INJECTABLE VIAL IVPUSH SCH (17:32)
[2024-04-03] MEDS: predniSONE 20 MG TABLET (UD) PO SCH (17:32)
[2024-04-03 18:02] VITALS: BMI 29.2
[2024-04-03] MEDS: APIXABAN 5 MG TABLET PO SCH (21:47)
[2024-04-03] MEDS: ATORVASTATIN CA 10 MG TABLET (FP) PO SCH (21:47)
[2024-04-03] MEDS: BUDESONIDE/FORMETEROL FUMARATE 160/4.5 mcg INHALER IH SCH (21:48)
[2024-04-04 06:44] LABS: BASO % 0.2 % (0-2.0); HEMOGLOBIN 11.1 GM/dL (10.7-15.3); MCH 25.1 pg (25.7-33.7); MCHC 32.7 g/dl (32.0-36.0); MEAN CELL VOLUME 76.8 fl (80-96); MEAN PLT VOLUME 7.6 fl (7.5-11.1); MONO % 7.7 % (3.8-10.2); NEUT % 86.1 % (42.8-82.8); PLATELET COUNT 219 10^3/uL (134-434); RBC 4.43 M/mm3 (3.60-5.2); RDW 16.1 % (11.6-15.6); WHITE BLOOD COUNT 10.1 K/mm3 (4.0-10.0)
[2024-04-04 07:07] LABS: POTASSIUM 3.4 mmol/L (3.5-5.1)
[2024-04-04 07:16] LABS: ALBUMIN 2.6 g/dl (3.4-5.0); BLOOD UREA NITROGEN 14.7 mg/dL (7-18); CALCIUM 8.8 mg/dL (8.5-10.1); MAGNESIUM 1.5 mg/dL (1.8-2.4)
[2024-04-04 07:18] LABS: PHOSPHOROUS 3.2 mg/dL (2.5-4.9)
[2024-04-04 07:19] LABS: CREATININE 0.9 mg/dL (0.55-1.3)
[2024-04-04 07:20] LABS: BILIRUBIN,TOTAL 0.9 mg/dL (0.2-1); TOT PROT 7.2 g/dl (6.4-8.2)
[2024-04-04] MEDS: POTASSIUM CHLORIDE ORAL LIQUID 20 MEQ/15 ML PO ONE (09:23)
[2024-04-04] MEDS ORDERED: ENOXAPARIN NA (PORCINE) 40 MG/0.4 ML DISP.SYRIN SQ SCH (10:00)
[2024-04-04] MEDS: MAGNESIUM 2GM/50ML STERILE WATER IVPB IVPB SCH (11:00)
[2024-04-04] MEDS: INSULIN ASPART SLIDING SCALE (NOVOLOG) 1 VIAL SQ SCH (12:34)
[2024-04-05 07:47] LABS: BASO % 0.1 % (0-2.0); EOS % 0.1 % (0-4.5); HEMATOCRIT 34.6 % (32.4-45.2); HEMOGLOBIN 11.4 GM/dL (10.7-15.3); LYMPH % 7.4 % (8-40); MCH 25.1 pg (25.7-33.7); MCHC 32.9 g/dl (32.0-36.0); MEAN CELL VOLUME 76.1 fl (80-96); MEAN PLT VOLUME 7.3 fl (7.5-11.1); MONO % 9.4 % (3.8-10.2); PLATELET COUNT 252 10^3/uL (134-434); RBC 4.54 M/mm3 (3.60-5.2); RDW 16.5 % (11.6-15.6); WHITE BLOOD COUNT 11.7 K/mm3 (4.0-10.0)
[2024-04-05 08:08] LABS: POTASSIUM 3.5 mmol/L (3.5-5.1)
[2024-04-05 08:28] LABS: ALBUMIN 2.4 g/dl (3.4-5.0); CALCIUM 9.1 mg/dL (8.5-10.1)
[2024-04-05 08:29] LABS: MAGNESIUM 1.9 mg/dL (1.8-2.4)
[2024-04-05 08:31] LABS: CREATININE 0.8 mg/dL (0.55-1.3); PHOSPHOROUS 2.8 mg/dL (2.5-4.9)
[2024-04-05 08:32] LABS: BILIRUBIN,TOTAL 0.7 mg/dL (0.2-1); TOT PROT 7.1 g/dl (6.4-8.2)
[2024-04-05] MEDS: FUROSEMIDE 40 MG/4 ML INJECTABLE VIAL IVPUSH SCH (13:25)
[2024-04-06 07:10] LABS: EOS % 0.2 % (0-4.5); HEMATOCRIT 36.7 % (32.4-45.2); LYMPH % 8.6 % (8-40); MCH 25.3 pg (25.7-33.7); MCHC 32.7 g/dl (32.0-36.0); MEAN CELL VOLUME 77.2 fl (80-96); MEAN PLT VOLUME 7.2 fl (7.5-11.1); MONO % 9.9 % (3.8-10.2); NEUT % 81.3 % (42.8-82.8); PLATELET COUNT 287 10^3/uL (134-434); RBC 4.76 M/mm3 (3.60-5.2); RDW 16.1 % (11.6-15.6); WHITE BLOOD COUNT 10.9 K/mm3 (4.0-10.0)
[2024-04-06 07:30] LABS: POTASSIUM 3.7 mmol/L (3.5-5.1)
[2024-04-06 07:35] LABS: ALBUMIN 2.4 g/dl (3.4-5.0); CALCIUM 9.4 mg/dL (8.5-10.1); MAGNESIUM 1.9 mg/dL (1.8-2.4)
[2024-04-06 07:38] LABS: CREATININE 0.8 mg/dL (0.55-1.3)
[2024-04-06 07:40] LABS: BILIRUBIN,TOTAL 0.6 mg/dL (0.2-1); TOT PROT 7.2 g/dl (6.4-8.2)
[2024-04-06 14:16] VITALS: RESP 18
[2024-04-07 06:49] LABS: HEMATOCRIT 37.8 % (32.4-45.2); HEMOGLOBIN 12.1 GM/dL (10.7-15.3); MCH 25.1 pg (25.7-33.7); MCHC 32.1 g/dl (32.0-36.0); MEAN PLT VOLUME 7.4 fl (7.5-11.1); PLATELET COUNT 299 10^3/uL (134-434); RBC 4.85 M/mm3 (3.60-5.2); RDW 16.6 % (11.6-15.6); WHITE BLOOD COUNT 7.6 K/mm3 (4.0-10.0)
[2024-04-07 07:11] LABS: POTASSIUM 4.1 mmol/L (3.5-5.1)
[2024-04-07 07:17] LABS: MAGNESIUM 1.7 mg/dL (1.8-2.4)
[2024-04-07 07:20] LABS: CREATININE 0.7 mg/dL (0.55-1.3)
[2024-04-07 07:21] LABS: PHOSPHOROUS 3.1 mg/dL (2.5-4.9)
[2024-04-07] MEDS ORDERED: CODEINE SO4 30 MG TABLET PO PRN (08:38)
[2024-04-07] MEDS: MAGNESIUM SULFATE IN WATER 2 GM/50 ML IVPB IVPB ONE (10:26)
[2024-04-07] MEDS: guaiFENesin/CODEINE 5 ML UNIT-DOSE CUPS PO PRN (14:05)
[2024-04-07] MEDS: ALBUTEROL SO4 2.5/IPRATROPIUM 0.5 INH SOL 3 ML VIAL.NEB. NEB SCH (20:15)
[2024-04-07] MEDS: CODEINE SO4 30 MG TABLET PO SCH (23:04)
[2024-04-08 07:42] LABS: HEMOGLOBIN 11.9 GM/dL (10.7-15.3); MCH 24.8 pg (25.7-33.7); MCHC 32.1 g/dl (32.0-36.0); MEAN CELL VOLUME 77.4 fl (80-96); MEAN PLT VOLUME 7.3 fl (7.5-11.1); PLATELET COUNT 293 10^3/uL (134-434); RBC 4.78 M/mm3 (3.60-5.2); RDW 16.4 % (11.6-15.6); WHITE BLOOD COUNT 6.1 K/mm3 (4.0-10.0)
[2024-04-08 08:04] LABS: POTASSIUM 3.7 mmol/L (3.5-5.1)
[2024-04-08 08:17] LABS: BLOOD UREA NITROGEN 19.8 mg/dL (7-18)
[2024-04-08 08:18] LABS: MAGNESIUM 2.1 mg/dL (1.8-2.4)
[2024-04-08 08:21] LABS: CREATININE 0.6 mg/dL (0.55-1.3); PHOSPHOROUS 2.6 mg/dL (2.5-4.9)
[2024-04-08] MEDS: FUROSEMIDE 40 MG TABLET (FP) PO SCH (10:30)
[2024-04-09 07:56] LABS: HEMATOCRIT 35.3 % (32.4-45.2); HEMOGLOBIN 11.5 GM/dL (10.7-15.3); MCH 25.2 pg (25.7-33.7); MCHC 32.5 g/dl (32.0-36.0); MEAN CELL VOLUME 77.6 fl (80-96); PLATELET COUNT 258 10^3/uL (134-434); RBC 4.55 M/mm3 (3.60-5.2); RDW 16.1 % (11.6-15.6); WHITE BLOOD COUNT 5.8 K/mm3 (4.0-10.0)
[2024-04-09 08:14] LABS: POTASSIUM 3.8 mmol/L (3.5-5.1)
[2024-04-09 08:18] LABS: CALCIUM 9.2 mg/dL (8.5-10.1); MAGNESIUM 1.9 mg/dL (1.8-2.4)
[2024-04-09 08:19] LABS: BLOOD UREA NITROGEN 17.1 mg/dL (7-18)
[2024-04-09 08:21] LABS: CREATININE 0.7 mg/dL (0.55-1.3)
[2024-04-09 08:22] LABS: PHOSPHOROUS 2.5 mg/dL (2.5-4.9)
[2024-04-09 14:59] VITALS: BP 117/77; PULSE 93; TEMP 98
== END 2024-04-09 18:00 | disposition home or self-care (01) | DRG 291 ==
LOC: JER 08:36 → JERBED 12:05 → J4W 14:46
PROVIDERS: ADMIT Internal Medicine; ATTEND Internal Medicine
DX: I11.0 Hypertensive heart disease with heart failure (principal); I50.33 Acute on chronic diastolic (congestive) heart failure; J96.01 Acute respiratory failure with hypoxia; J81.0 Acute pulmonary edema; I24.89 Other forms of acute ischemic heart disease; I16.0 Hypertensive urgency; E11.9 Type 2 diabetes mellitus without complications; K76.1 Chronic passive congestion of liver; I70.0 Atherosclerosis of aorta; I48.91 Unspecified atrial fibrillation; E78.5 Hyperlipidemia, unspecified
CPT/HCPCS: 0241U-QW; 36415; 71045-TC-FY; 71250-TC; 80048; 80053; 82803; 82962; 83036; 83735; 83880; 84100; 84484; 85025; 85027; 85610; 85730; 86850; 86900; 86901; 87040; 93005; 93010; 93306-TC; 94640; 94660; 94761; 97116-GP; 97162-GP; 99285-25

== ENCOUNTER 2024-04-24 05:52 | Inpatient (IN) | payer OTHER ==
[2024-04-24] MEDS: NITROGLYCERIN SUBLINGUAL 1/150 0.4 MG TAB SL ONE ×2 (06:00→08:58)
[2024-04-24] MEDS: ALBUTEROL SO4 2.5/IPRATROPIUM 0.5 INH SOL 3 ML VIAL.NEB. NEB ONE (06:03)
[2024-04-24 06:27] LABS: VENOUS BASE EXCESS 0.2 mmol/L (-2-2); VENOUS O2 SATURATION 43.1 % (70-80); VENOUS PCO2 40.1 mmHg (38-52); VENOUS PH 7.41 (7.310-7.410)
[2024-04-24 06:51] LABS: BASO % 0.3 % (0-2.0); EOS % 1.6 % (0-4.5); HEMATOCRIT 36.4 % (32.4-45.2); HEMOGLOBIN 11.7 GM/dL (10.7-15.3); MCH 25.4 pg (25.7-33.7); MCHC 32.3 g/dl (32.0-36.0); MEAN CELL VOLUME 78.8 fl (80-96); MEAN PLT VOLUME 7.5 fl (7.5-11.1); NEUT % 81.1 % (42.8-82.8); PLATELET COUNT 230 10^3/uL (134-434); RBC 4.62 M/mm3 (3.60-5.2); RDW 16.7 % (11.6-15.6); WHITE BLOOD COUNT 8.1 K/mm3 (4.0-10.0)
[2024-04-24 06:53] LABS: POTASSIUM 4.3 mmol/L (3.5-5.1)
[2024-04-24 06:55] LABS: ALBUMIN 2.7 g/dl (3.4-5.0); BLOOD UREA NITROGEN 9.9 mg/dL (7-18)
[2024-04-24 06:56] LABS: MAGNESIUM 1.5 mg/dL (1.8-2.4)
[2024-04-24 06:58] LABS: CREATININE 0.9 mg/dL (0.55-1.3)
[2024-04-24 07:00] LABS: TOT PROT 7.9 g/dl (6.4-8.2)
[2024-04-24 07:06] LABS: INR 1.7 (0.83-1.09); PROTHROMBIN TIME (PATIENT) 19.2 SEC (9.7-13.0)
[2024-04-24 07:08] LABS: ACTIVATED PTT 30.5 SECONDS (25.2-36.5)
[2024-04-24] MEDS ORDERED: MAGNESIUM SULFATE IN WATER 2 GM/50 ML IVPB IVPB ONE (07:55)
[2024-04-24] MEDS ORDERED: FUROSEMIDE 40 MG/4 ML INJECTABLE VIAL ONE (07:56)
[2024-04-24] MEDS: MAGNESIUM SULFATE IN WATER 2 GM/50 ML IVPB IVPB ONE (08:12)
[2024-04-24] MEDS: FUROSEMIDE 40 MG/4 ML INJECTABLE VIAL IVPUSH ONE (08:12)
[2024-04-24 08:39] LABS: N-TERMINAL BNP 2664.8 pg/ml (5-450)
[2024-04-24] MEDS ORDERED: NITROGLYCERIN SUBLINGUAL 1/150 0.4 MG TAB ONE (08:53)
[2024-04-24] MEDS: NITROGLYCERIN 25MG/D5W 250ML 25 MG/250 ML ML IVPB SCH ×3 (09:24)
[2024-04-24] MEDS ORDERED: VALSARTAN 80 MG TABLET ONE ×2 (10:08→10:10)
[2024-04-24] MEDS ORDERED: APIXABAN 5 MG TABLET ONE ×2 (10:08→23:25)
[2024-04-24] MEDS: APIXABAN 5 MG TABLET PO SCH (10:14)
[2024-04-24] MEDS: VALSARTAN 160 MG TABLET PO SCH (10:14)
[2024-04-24] MEDS ORDERED: ALBUTEROL SO4 2.5/IPRATROPIUM 0.5 INH SOL 3 ML VIAL.NEB. NEB SCH (12:00)
[2024-04-24] MEDS ORDERED: ALBUTEROL SO4 0.083% IH SOL 2.5 MG/3 ML VIAL.NEB. NEB ONE ×3 (12:13→20:06)
[2024-04-24] MEDS: ALBUTEROL SO4 0.083% IH SOL 2.5 MG/3 ML VIAL.NEB. NEB SCH (12:24)
[2024-04-24] MEDS: INSULIN ASPART SLIDING SCALE (NOVOLOG) 1 VIAL SQ SCH (12:30)
[2024-04-24] MEDS ORDERED: NIFEdipine E.R. 30 MG TABLET PO ONE (13:25)
[2024-04-24] MEDS: NIFEdipine E.R. 30 MG TABLET PO SCH (13:30)
[2024-04-24] MEDS ORDERED: guaiFENesin/D-METHORPHAN HB 10 ML UNIT-DOSE CUPS ONE (14:51)
[2024-04-24] MEDS: FLUTICASONE/UMECLIDIN/VILANTER(100-62.5-25 TRELEGY ELLIPTA) INAHLER IH SCH (15:01)
[2024-04-24] MEDS: guaiFENesin 200 MG/10 ML 10 ML UNIT-DOSE CUPS PO ONE (15:01)
[2024-04-24] MEDS ORDERED: LABETALOL HCL 5 MG/1 ML (100MG/20 ML VIAL) ONE (17:33)
[2024-04-24] MEDS: LABETALOL HCL 5 MG/1 ML (100MG/20 ML VIAL) IVPUSH ONE (17:44)
[2024-04-24] MEDS ORDERED: ATORVASTATIN CA 10 MG TABLET (FP) ONE (23:26)
[2024-04-24] MEDS ORDERED: INSULIN ASPART SLIDING SCALE (NOVOLOG) 1 VIAL SQ ONE (23:26)
[2024-04-24] MEDS: ATORVASTATIN CA 10 MG TABLET (FP) PO SCH (23:36)
[2024-04-25 00:52] VITALS: BMI 28.5
[2024-04-25] MEDS: METOPROLOL TARTRATE 5 MG/5 ML VIAL IVPUSH ONE (05:49)
[2024-04-25] MEDS: FUROSEMIDE 40 MG/4 ML INJECTABLE VIAL IVPUSH ONE (05:50)
[2024-04-25 06:20] LABS: HEMATOCRIT 34.7 % (32.4-45.2); HEMOGLOBIN 11.1 GM/dL (10.7-15.3); MCHC 32.1 g/dl (32.0-36.0); MEAN CELL VOLUME 78.1 fl (80-96); MEAN PLT VOLUME 7.1 fl (7.5-11.1); PLATELET COUNT 201 10^3/uL (134-434); RBC 4.44 M/mm3 (3.60-5.2); RDW 16.5 % (11.6-15.6); WHITE BLOOD COUNT 11.2 K/mm3 (4.0-10.0)
[2024-04-25] MEDS: LEVALBUTEROL HCL 0.63 MG/3 ML VIAL.NEB. IH SCH (06:38)
[2024-04-25 06:39] LABS: POTASSIUM 3.7 mmol/L (3.5-5.1)
[2024-04-25 06:41] LABS: ALBUMIN 2.5 g/dl (3.4-5.0); BLOOD UREA NITROGEN 10.6 mg/dL (7-18); CALCIUM 9.2 mg/dL (8.5-10.1); MAGNESIUM 1.8 mg/dL (1.8-2.4)
[2024-04-25 06:45] LABS: PHOSPHOROUS 2.3 mg/dL (2.5-4.9)
[2024-04-25 06:46] LABS: CREATININE 0.7 mg/dL (0.55-1.3)
[2024-04-25 06:47] LABS: BILIRUBIN,TOTAL 1.2 mg/dL (0.2-1); TOT PROT 7.7 g/dl (6.4-8.2)
[2024-04-25] MEDS: FUROSEMIDE 40 MG/4 ML INJECTABLE VIAL IVPUSH SCH (11:38)
[2024-04-25] MEDS: methylPREDNISolone NA SUCC 40 MG/1 ML VIAL IVPUSH SCH (15:14)
[2024-04-25] MEDS: FLUTICASONE/UMECLIDIN/VILANTER(200-62.5-25 TRELEGY ELLIPTA) INAHLER IH SCH (17:43)
[2024-04-25] MEDS: AMINO ACIDS 4.25%/D5W 1,000 ML IV SCH (21:09)
[2024-04-25] MEDS: INSULIN (LEVEMIR) 100 UNITS/ML UNITS SQ SCH (21:10)
[2024-04-25] MEDS: BUDESONIDE/FORMETEROL FUMARATE 160/4.5 mcg INHALER IH SCH (21:14)
[2024-04-26] MEDS: PANTOPRAZOLE 40 MG TABLET PO SCH (13:07)
[2024-04-26] MEDS: ACETAMINOPHEN 1000 MG/100 ML BAG IVPB ONE (13:07)
[2024-04-26] MEDS: SIMETHICONE 80 MG TAB.CHEW (FP) PO PRN (13:07)
[2024-04-26] MEDS: INSULIN (LEVEMIR) 100 UNITS/ML UNITS SQ ONE (13:08)
[2024-04-26] MEDS: INSULIN ASPART SLIDING SCALE (NOVOLOG) 1 VIAL SQ SCH (16:36)
[2024-04-26] MEDS: LIDOCAINE 5% TOPICAL PATCH TP ONE (16:45)
[2024-04-26] MEDS: ACETAMINOPHEN 1000 MG/100 ML BAG IVPB PRN (20:06)
[2024-04-26] MEDS: metoPROLOL SUCCINATE 25 MG TAB.SR.24H (FP) PO SCH (20:07)
[2024-04-26] MEDS: LIDOCAINE PATCH REMOVAL MC SCH (21:09)
[2024-04-26] MEDS: INSULIN (LEVEMIR) 100 UNITS/ML UNITS SQ SCH (23:02)
[2024-04-27 07:20] LABS: BASO % 0.3 % (0-2.0); HEMATOCRIT 34.8 % (32.4-45.2); HEMOGLOBIN 11.3 GM/dL (10.7-15.3); LYMPH % 3.4 % (8-40); MCH 25.2 pg (25.7-33.7); MCHC 32.5 g/dl (32.0-36.0); MEAN CELL VOLUME 77.5 fl (80-96); MEAN PLT VOLUME 7.5 fl (7.5-11.1); MONO % 6.7 % (3.8-10.2); NEUT % 89.6 % (42.8-82.8); PLATELET COUNT 241 10^3/uL (134-434); RDW 15.8 % (11.6-15.6); WHITE BLOOD COUNT 14.7 K/mm3 (4.0-10.0)
[2024-04-27 07:31] LABS: POTASSIUM 3.9 mmol/L (3.5-5.1)
[2024-04-27 07:34] LABS: ALBUMIN 2.2 g/dl (3.4-5.0); CALCIUM 9.5 mg/dL (8.5-10.1)
[2024-04-27 07:37] LABS: CREATININE 1.2 mg/dL (0.55-1.3)
[2024-04-27 07:38] LABS: BILIRUBIN,TOTAL 0.5 mg/dL (0.2-1); TOT PROT 7.3 g/dl (6.4-8.2)
[2024-04-27 07:42] LABS: BLOOD UREA NITROGEN 59.5 mg/dL (7-18)
[2024-04-27 17:52] LABS: CHLORIDE 97 mmol/L (98-107); POTASSIUM 9.6 mmol/L (3.5-5.1); SODIUM 126 mmol/L (136-145)
[2024-04-27 17:54] LABS: ALBUMIN 1.8 g/dl (3.4-5.0); ANION GAP 4 mmol/L (4-13); BLOOD UREA NITROGEN 63.6 mg/dL (7-18); CO2 26 mmol/L (21-32)
[2024-04-27 17:55] LABS: GLUCOSE,RANDOM 264 mg/dL (74-106)
[2024-04-27 17:57] LABS: SGOT/AST 69 U/L (15-37)
[2024-04-27 17:58] LABS: CREATININE 1.3 mg/dL (0.55-1.3)
[2024-04-27 17:59] LABS: BILIRUBIN,TOTAL 0.7 mg/dL (0.2-1); TOT PROT 7.7 g/dl (6.4-8.2)
[2024-04-27 18:00] LABS: ALK PHOS 94 U/L (45-117)
[2024-04-27 18:01] LABS: SGPT/ALT 14 U/L (13-61)
[2024-04-27 21:32] LABS: BLOOD UREA NITROGEN 67.8 mg/dL (7-18); CALCIUM 9.1 mg/dL (8.5-10.1)
[2024-04-27 21:35] LABS: CREATININE 1.4 mg/dL (0.55-1.3)
[2024-04-27 21:37] LABS: BILIRUBIN,TOTAL 0.4 mg/dL (0.2-1)
[2024-04-27] MEDS: SODIUM CHLORIDE 500 ML IV STA (22:05)
[2024-04-28] MEDS: AMINO ACIDS 4.25%/D5W 1,000 ML IV SCH (01:30)
[2024-04-28 07:14] LABS: BASO % 0.2 % (0-2.0); HEMATOCRIT 40.4 % (32.4-45.2); HEMOGLOBIN 13.1 GM/dL (10.7-15.3); LYMPH % 4.6 % (8-40); MCHC 32.3 g/dl (32.0-36.0); MEAN CELL VOLUME 77.4 fl (80-96); MEAN PLT VOLUME 7.4 fl (7.5-11.1); MONO % 7.8 % (3.8-10.2); NEUT % 87.4 % (42.8-82.8); PLATELET COUNT 309 10^3/uL (134-434); RBC 5.22 M/mm3 (3.60-5.2); RDW 15.9 % (11.6-15.6); WHITE BLOOD COUNT 11.7 K/mm3 (4.0-10.0)
[2024-04-28 07:24] LABS: POTASSIUM 4.2 mmol/L (3.5-5.1)
[2024-04-28 07:26] LABS: CALCIUM 9.3 mg/dL (8.5-10.1)
[2024-04-28 07:27] LABS: ALBUMIN 2.1 g/dl (3.4-5.0); BLOOD UREA NITROGEN 73.8 mg/dL (7-18); MAGNESIUM 1.9 mg/dL (1.8-2.4)
[2024-04-28 07:30] LABS: CREATININE 1.2 mg/dL (0.55-1.3)
[2024-04-28 07:31] LABS: BILIRUBIN,TOTAL 0.5 mg/dL (0.2-1); TOT PROT 7.4 g/dl (6.4-8.2)
[2024-04-28] MEDS ORDERED: VALSARTAN 80 MG TABLET PO SCH (10:09)
[2024-04-28] MEDS: VALSARTAN 80 MG TABLET PO SCH (10:19)
[2024-04-28] MEDS ORDERED: INSULIN ASPART SLIDING SCALE (NOVOLOG) 1 VIAL SQ ONE (11:59)
[2024-04-28] MEDS ORDERED: FUROSEMIDE 40 MG/4 ML INJECTABLE VIAL IVPUSH ONE (14:00)
[2024-04-28] MEDS: FUROSEMIDE 40 MG/4 ML INJECTABLE VIAL IVPUSH ONE (17:01)
[2024-04-29 07:50] LABS: HEMATOCRIT 42.1 % (32.4-45.2); HEMOGLOBIN 13.4 GM/dL (10.7-15.3); MCH 24.8 pg (25.7-33.7); MCHC 31.7 g/dl (32.0-36.0); MEAN CELL VOLUME 78.2 fl (80-96); MEAN PLT VOLUME 7.1 fl (7.5-11.1); PLATELET COUNT 318 10^3/uL (134-434); RBC 5.38 M/mm3 (3.60-5.2); RDW 16.1 % (11.6-15.6); WHITE BLOOD COUNT 11.1 K/mm3 (4.0-10.0)
[2024-04-29 08:12] LABS: POTASSIUM 4.3 mmol/L (3.5-5.1)
[2024-04-29 08:22] LABS: CALCIUM 9.4 mg/dL (8.5-10.1)
[2024-04-29 08:23] LABS: BLOOD UREA NITROGEN 71.3 mg/dL (7-18); MAGNESIUM 2.1 mg/dL (1.8-2.4)
[2024-04-29 08:28] LABS: BILIRUBIN,TOTAL 0.5 mg/dL (0.2-1); TOT PROT 7.3 g/dl (6.4-8.2)
[2024-04-29 08:43] LABS: ANISOCYTOSIS 0; MACROCYTOSIS 0
[2024-04-29] MEDS: POLYETHYLENE GLYCOL (HEALTHYLAX) 3350 17 GM PACKET PO SCH (11:37)
[2024-04-29] MEDS: FUROSEMIDE 40 MG/4 ML INJECTABLE VIAL IVPUSH ONE (17:53)
[2024-04-30] MEDS: FUROSEMIDE 40 MG/4 ML INJECTABLE VIAL IVPUSH SCH (06:15)
[2024-04-30 07:47] LABS: POTASSIUM 3.6 mmol/L (3.5-5.1)
[2024-04-30 07:48] LABS: HEMATOCRIT 42.1 % (32.4-45.2); HEMOGLOBIN 13.4 GM/dL (10.7-15.3); MCH 24.8 pg (25.7-33.7); MCHC 31.9 g/dl (32.0-36.0); MEAN CELL VOLUME 77.7 fl (80-96); MEAN PLT VOLUME 7.1 fl (7.5-11.1); PLATELET COUNT 320 10^3/uL (134-434); RBC 5.41 M/mm3 (3.60-5.2); WHITE BLOOD COUNT 10.5 K/mm3 (4.0-10.0)
[2024-04-30 07:58] LABS: BLOOD UREA NITROGEN 65.5 mg/dL (7-18); CALCIUM 9.2 mg/dL (8.5-10.1)
[2024-04-30 08:00] LABS: CREATININE 1.1 mg/dL (0.55-1.3)
[2024-04-30] MEDS: SENNOSIDES 8.8 MG/5 ML SYRUP PO SCH (11:43)
[2024-04-30] MEDS: MINERAL OIL ENEMA 133 ML ENEMA RC ONE (18:53)
[2024-04-30] MEDS: guaiFENesin/CODEINE 10 ML UNIT-DOSE CUPS PO PRN (21:47)
[2024-05-01 07:30] LABS: CALCIUM 9.4 mg/dL (8.5-10.1); HEMATOCRIT 43.3 % (32.4-45.2); HEMOGLOBIN 13.9 GM/dL (10.7-15.3); MCH 25.1 pg (25.7-33.7); MCHC 32.1 g/dl (32.0-36.0); MEAN CELL VOLUME 78.2 fl (80-96); MEAN PLT VOLUME 7.2 fl (7.5-11.1); PLATELET COUNT 325 10^3/uL (134-434); RBC 5.55 M/mm3 (3.60-5.2); RDW 16.3 % (11.6-15.6)
[2024-05-01 07:31] LABS: BLOOD UREA NITROGEN 56.8 mg/dL (7-18)
[2024-05-01 07:34] LABS: CREATININE 1.1 mg/dL (0.55-1.3)
[2024-05-02] MEDS: METOLAZONE 5 MG TABLET PO SCH (07:55)
[2024-05-02 08:23] LABS: HEMATOCRIT 43.3 % (32.4-45.2); HEMOGLOBIN 13.7 GM/dL (10.7-15.3); MCH 24.5 pg (25.7-33.7); MCHC 31.8 g/dl (32.0-36.0); MEAN CELL VOLUME 77.2 fl (80-96); MEAN PLT VOLUME 7.1 fl (7.5-11.1); PLATELET COUNT 307 10^3/uL (134-434); RDW 16.5 % (11.6-15.6)
[2024-05-02 08:38] LABS: POTASSIUM 4.4 mmol/L (3.5-5.1)
[2024-05-02 08:46] LABS: CALCIUM 9.1 mg/dL (8.5-10.1)
[2024-05-02 08:47] LABS: ALBUMIN 2.1 g/dl (3.4-5.0); BLOOD UREA NITROGEN 54.2 mg/dL (7-18)
[2024-05-02 08:50] LABS: BILIRUBIN,TOTAL 0.6 mg/dL (0.2-1); CREATININE 0.9 mg/dL (0.55-1.3); TOT PROT 6.9 g/dl (6.4-8.2)
[2024-05-03 10:27] LABS: HEMATOCRIT 45.2 % (32.4-45.2); HEMOGLOBIN 14.5 GM/dL (10.7-15.3); MCH 24.8 pg (25.7-33.7); MEAN CELL VOLUME 77.6 fl (80-96); MEAN PLT VOLUME 7.3 fl (7.5-11.1); PLATELET COUNT 306 10^3/uL (134-434); RBC 5.82 M/mm3 (3.60-5.2); RDW 16.4 % (11.6-15.6)
[2024-05-03 10:40] LABS: POTASSIUM 3.8 mmol/L (3.5-5.1)
[2024-05-03 10:42] LABS: BLOOD UREA NITROGEN 49.8 mg/dL (7-18); CALCIUM 9.1 mg/dL (8.5-10.1); MAGNESIUM 1.8 mg/dL (1.8-2.4)
[2024-05-03] MEDS: INSULIN (NOVOLOG) ASPART 100 UNITS/ML 10ML VIAL SQ SCH (17:39)
[2024-05-04 08:08] LABS: HEMATOCRIT 43.9 % (32.4-45.2); HEMOGLOBIN 14.3 GM/dL (10.7-15.3); MCH 25.1 pg (25.7-33.7); MCHC 32.5 g/dl (32.0-36.0); MEAN PLT VOLUME 7.6 fl (7.5-11.1); PLATELET COUNT 252 10^3/uL (134-434); RDW 15.9 % (11.6-15.6); WHITE BLOOD COUNT 10.5 K/mm3 (4.0-10.0)
[2024-05-04 08:19] LABS: POTASSIUM 3.8 mmol/L (3.5-5.1)
[2024-05-04 08:22] LABS: ALBUMIN 2.2 g/dl (3.4-5.0); CALCIUM 9.1 mg/dL (8.5-10.1)
[2024-05-04 08:23] LABS: BLOOD UREA NITROGEN 56.6 mg/dL (7-18); MAGNESIUM 1.9 mg/dL (1.8-2.4)
[2024-05-04 08:26] LABS: CREATININE 1.2 mg/dL (0.55-1.3)
[2024-05-04 08:27] LABS: BILIRUBIN,TOTAL 0.6 mg/dL (0.2-1); TOT PROT 6.9 g/dl (6.4-8.2)
[2024-05-05 06:58] LABS: HEMATOCRIT 45.3 % (32.4-45.2); HEMOGLOBIN 14.4 GM/dL (10.7-15.3); MCH 24.8 pg (25.7-33.7); MCHC 31.9 g/dl (32.0-36.0); MEAN CELL VOLUME 77.8 fl (80-96); MEAN PLT VOLUME 7.6 fl (7.5-11.1); PLATELET COUNT 290 10^3/uL (134-434); RBC 5.82 M/mm3 (3.60-5.2); RDW 15.8 % (11.6-15.6); WHITE BLOOD COUNT 11.8 K/mm3 (4.0-10.0)
[2024-05-05 07:20] LABS: POTASSIUM 3.1 mmol/L (3.5-5.1)
[2024-05-05 07:27] LABS: CALCIUM 9.4 mg/dL (8.5-10.1)
[2024-05-05 07:28] LABS: BLOOD UREA NITROGEN 60.9 mg/dL (7-18)
[2024-05-05 07:31] LABS: CREATININE 1.1 mg/dL (0.55-1.3)
[2024-05-05] MEDS: POTASSIUM CHLORIDE ORAL LIQUID 20 MEQ/15 ML PO ONE ×2 (09:26→14:32)
[2024-05-05] MEDS: MAGNESIUM SULF 50% (8.12 MEQ/2 ML-1 GM VIAL) IVPB ONE (17:42)
[2024-05-06] MEDS: INSULIN ASPART SLIDING SCALE (NOVOLOG) 1 VIAL SQ SCH (06:32)
[2024-05-06 07:49] LABS: HEMATOCRIT 42.5 % (32.4-45.2); HEMOGLOBIN 13.4 GM/dL (10.7-15.3); MCH 24.6 pg (25.7-33.7); MCHC 31.6 g/dl (32.0-36.0); MEAN CELL VOLUME 77.7 fl (80-96); MEAN PLT VOLUME 7.8 fl (7.5-11.1); PLATELET COUNT 257 10^3/uL (134-434); RBC 5.46 M/mm3 (3.60-5.2); RDW 15.8 % (11.6-15.6); WHITE BLOOD COUNT 11.9 K/mm3 (4.0-10.0)
[2024-05-06 08:14] LABS: BLOOD UREA NITROGEN 68.1 mg/dL (7-18); CALCIUM 9.3 mg/dL (8.5-10.1)
[2024-05-06 08:15] LABS: MAGNESIUM 2.4 mg/dL (1.8-2.4)
[2024-05-06 08:18] LABS: CREATININE 1.2 mg/dL (0.55-1.3)
[2024-05-07 07:09] LABS: HEMATOCRIT 45.5 % (32.4-45.2); HEMOGLOBIN 14.3 GM/dL (10.7-15.3); MCH 24.7 pg (25.7-33.7); MCHC 31.5 g/dl (32.0-36.0); MEAN CELL VOLUME 78.4 fl (80-96); MEAN PLT VOLUME 7.8 fl (7.5-11.1); PLATELET COUNT 249 10^3/uL (134-434); RBC 5.81 M/mm3 (3.60-5.2); RDW 15.9 % (11.6-15.6); WHITE BLOOD COUNT 12.5 K/mm3 (4.0-10.0)
[2024-05-07 07:34] LABS: POTASSIUM 3.4 mmol/L (3.5-5.1)
[2024-05-07 07:36] LABS: CALCIUM 9.4 mg/dL (8.5-10.1)
[2024-05-07 07:37] LABS: BLOOD UREA NITROGEN 69.2 mg/dL (7-18)
[2024-05-07 07:40] LABS: CREATININE 1.1 mg/dL (0.55-1.3)
[2024-05-07] MEDS: FUROSEMIDE 20 MG TABLET (FP) PO SCH (10:57)
[2024-05-07] MEDS: predniSONE 10 MG TABLET (UD) PO SCH (10:57)
[2024-05-07] MEDS: POTASSIUM CHLORIDE TABS 20 MEQ TABLET.ER (FP) PO ONE (20:27)
[2024-05-08] MEDS: INSULIN (NOVOLOG) ASPART 100 UNITS/ML 10ML VIAL SQ ONE (03:41)
[2024-05-09] MEDS: predniSONE 10 MG TABLET (UD) PO SCH (09:20)
[2024-05-09 21:07] VITALS: BP 118/67; PULSE 77; RESP 20; TEMP 98.2
== END 2024-05-09 21:00 | DRG 291 ==
LOC: JER 05:52 → JERBED 06:46 → J4W 04-25 00:23
PROVIDERS: ADMIT Internal Medicine; ATTEND Internal Medicine
DX: I11.0 Hypertensive heart disease with heart failure (principal); I50.33 Acute on chronic diastolic (congestive) heart failure; J96.01 Acute respiratory failure with hypoxia; J81.0 Acute pulmonary edema; I48.20 Chronic atrial fibrillation, unspecified; I16.0 Hypertensive urgency; E11.9 Type 2 diabetes mellitus without complications; E78.5 Hyperlipidemia, unspecified; K59.00 Constipation, unspecified; J84.89 Other specified interstitial pulmonary diseases; D86.9 Sarcoidosis, unspecified
CPT/HCPCS: 0241U-QW; 36415; 71045-TC-FY; 76705-TC; 80048; 80053; 82803; 82962; 83036; 83735; 83880; 84100; 84484; 85025; 85027; 85610; 85730; 87635; 93005; 93010; 94010; 94660; 97116-GP; 97163-GP; 99285-25; J0131